=== PATIENT | female | born 1970 ===

== ENCOUNTER → 2020-02-13 09:41 | Outpatient (CLI) | payer OTHER | END | disposition home or self-care (01) | LOC: LAB 09:41 | PROVIDERS: ATTEND Internal Medicine Hematology & Oncology | DX: D50.0 Iron deficiency anemia secondary to blood loss (chronic) (principal); D53.8 Other specified nutritional anemias; D58.2 Other hemoglobinopathies; D51.8 Other vitamin B12 deficiency anemias; K76.0 Fatty (change of) liver, not elsewhere classified; D59.4 Other nonautoimmune hemolytic anemias ==

== ENCOUNTER 2020-03-30 09:32 | Outpatient (CLI) | payer OTHER | END 2020-03-30 09:36 | disposition home or self-care (01) | LOC: LAB 09:32 | PROVIDERS: ATTEND Internal Medicine Hematology & Oncology | DX: D50.0 Iron deficiency anemia secondary to blood loss (chronic) (principal); D53.8 Other specified nutritional anemias; D58.2 Other hemoglobinopathies; D51.8 Other vitamin B12 deficiency anemias; K76.0 Fatty (change of) liver, not elsewhere classified; D59.4 Other nonautoimmune hemolytic anemias; R82.998 Other abnormal findings in urine ==